=== PATIENT | female | born 1990 | race Caucasian/White ===

== ENCOUNTER 2021-05-04 07:51 | Inpatient (IN) | payer BC ==
[2021-05-04] MEDS ORDERED: hydrALAZINE 20 MG/ML VIAL SLOW IVP PRN ×2 (10:29→14:24)
[2021-05-04] MEDS ORDERED: Ondansetron PF 4 MG/2 ML Vial IVP PRN ×2 (10:29→17:40)
[2021-05-04] MEDS ORDERED: Lactated Ringer's 1,000 ML IV SCH (10:29)
[2021-05-04] MEDS ORDERED: Acetaminophen 500 MG TAB PO PRN (10:29)
[2021-05-04] MEDS ORDERED: Bicitra 30 ML UDCUP PO PRN (10:29)
[2021-05-04] MEDS ORDERED: Famotidine/PF 20 mg/2ml Vial SLOW IVP PRN (10:29)
[2021-05-04] MEDS ORDERED: ceFAZolin 2 GM/Dextrose 50 ML 2 GM in Premix Bag 1 BAG IVPB SCH (10:29)
[2021-05-04] MEDS ORDERED: Promethazine HCl 25 MG/ML VIAL IM PRN ×2 (10:29→17:40)
[2021-05-04 10:37] VITALS: BMI 48.4
[2021-05-04 11:36] LABS: Mean Corpuscular Hemoglobin 25.9 pg (27.0-33.0); Mean Corpuscular Volume 81.1 fl (81.6-98.3); Mean Platelet Volume 12.8 fl (7.4-10.4); Platelet Count 184 10x3/uL (150-450); RBC Distribution Width 14.5 % (11.5-14.5); Red Blood Cell (RBC) Count 4.24 10x6/uL (3.90-5.03); White Blood Cell (WBC) Count 12.5 10x3/uL (3.5-10.5)
[2021-05-04 11:57] LABS: Hep B Surf Ag Non-Reactive S/CO (NonReactive); Syphilis Antibody Nonreactive (Nonreactive); Syphilis Antibody Index 0.04 S/CO (<1.00 Non-Reactive)
[2021-05-04 11:59] LABS: HBSAg Index 0.21 S/CO (0-0.99)
[2021-05-04] MEDS ORDERED: Morphine PF 10 MG/10 ML VIAL ONE (12:02)
[2021-05-04] MEDS ORDERED: Dexamethasone 4 mg/ml Vial ONE (12:05)
[2021-05-04] MEDS ORDERED: Ondansetron PF 4 MG/2 ML Vial ONE (12:05)
[2021-05-04] MEDS ORDERED: Ketorolac Tromethamine 30 MG/ML VIAL ONE (12:05)
[2021-05-04] MEDS ORDERED: Oxytocin 10 UNITS/ML VIAL ONE (12:05)
[2021-05-04] MEDS ORDERED: PHENYLEPHRINE-NS 100 MCG/ML 10 ML SYRINGE ONE (12:26)
[2021-05-04] MEDS ORDERED: HYDROcodone/Acetaminophen 5/325 mg Tablet PO PRN ×2 (14:24)
[2021-05-04] MEDS ORDERED: Bisacodyl 10 MG SUPP PR PRN (14:24)
[2021-05-04] MEDS ORDERED: Misoprostol 200 MCG TAB PR PRN (14:24)
[2021-05-04] MEDS ORDERED: Boostrix 0.5 ML (Tdap) VIAL IM ONE (14:24)
[2021-05-04] MEDS ORDERED: Acetaminophen 325 MG TAB PO PRN (14:24)
[2021-05-04] MEDS ORDERED: Zolpidem Tartrate 5 MG TAB PO PRN (14:24)
[2021-05-04] MEDS ORDERED: diphenhydrAMINE 25 MG CAP PO PRN (14:24)
[2021-05-04] MEDS ORDERED: Lanolin Ointment 7 GM TUBE TOP PRN (14:24)
[2021-05-04] MEDS ORDERED: Hydrocerin (Eucerin) Cream 120 gm Jar TOP PRN (17:40)
[2021-05-04] MEDS ORDERED: Promethazine HCl 25 MG SUPP PR PRN (17:40)
[2021-05-04] MEDS ORDERED: Naloxone HCl 0.4 mg/ml Vial IVP PRN ×2 (17:40)
[2021-05-04] MEDS ORDERED: diphenhydrAMINE 50 MG/ML VIAL IVP PRN (17:40)
[2021-05-04] MEDS ORDERED: Naloxone HCl 0.4 mg/ml Vial IV PRN (17:40)
[2021-05-04] MEDS ORDERED: Communication Order-Pharmacy FS SCH (17:45)
[2021-05-04] MEDS ORDERED: Ibuprofen 800 MG TAB PO SCH (18:00)
[2021-05-04] MEDS ORDERED: Ketorolac Tromethamine 30 MG/ML VIAL IVP PRN (20:00)
[2021-05-04] MEDS: Docusate 100 MG CAP PO SCH (20:18)
[2021-05-05 04:42] LABS: Hemoglobin 9.4 g/dL (12.0-15.5); Mean Corpuscular HGB CONC 31.5 g/dL (32.0-36.0); Mean Corpuscular Hemoglobin 26.3 pg (27.0-33.0); Mean Corpuscular Volume 83.2 fl (81.6-98.3); Mean Platelet Volume 12.5 fl (7.4-10.4); Platelet Count 143 10x3/uL (150-450); RBC Distribution Width 14.5 % (11.5-14.5); Red Blood Cell (RBC) Count 3.58 10x6/uL (3.90-5.03); White Blood Cell (WBC) Count 11.8 10x3/uL (3.5-10.5)
[2021-05-05] MEDS ORDERED: Zolpidem Tartrate 5 MG TAB PO PRN (05:45)
[2021-05-05] MEDS: Docusate 100 MG CAP PO SCH ×2 (09:11→21:07)
[2021-05-05] MEDS: HYDROcodone/Acetaminophen 5/325 mg Tablet PO PRN ×4 (09:11→21:09)
[2021-05-05] MEDS: Prenatal Vitamin 1 TAB PO SCH (09:11)
[2021-05-05] MEDS: Ibuprofen 800 MG TAB PO SCH ×2 (13:07→21:08)
[2021-05-06] MEDS: Ibuprofen 800 MG TAB PO SCH (04:37)
[2021-05-06] MEDS: HYDROcodone/Acetaminophen 5/325 mg Tablet PO PRN ×2 (04:38→09:04)
[2021-05-06] MEDS: Docusate 100 MG CAP PO SCH (08:59)
[2021-05-06] MEDS: Prenatal Vitamin 1 TAB PO SCH (08:59)
[2021-05-06 09:31] VITALS: BP 130/72; TEMP 97.7
== END 2021-05-06 11:00 | disposition home or self-care (01) | DRG 788 ==
LOC: CSHLD 10:13 → CSHPP 16:55
PROVIDERS: ADMIT Obstetrics & Gynecology; ATTEND Obstetrics & Gynecology
PROC: 10D00Z1 Extraction of Products of Conception, Low, Open Approach (ICD-10-PCS; principal; 2021-05-04)
DX: O34.211 Maternal care for low transverse scar from previous cesarean delivery (principal); Z3A.39 39 weeks gestation of pregnancy; Z37.0 Single live birth; O99.214 Obesity complicating childbirth; O99.02 Anemia complicating childbirth; D50.9 Iron deficiency anemia, unspecified
CPT/HCPCS: 36415; 51702; 85027; 86762; 86780; 86850; 86900; 86901; 87340; J0690; J1100; J1885; J2274; J2405; J2590; J7120; S0028

== ENCOUNTER 2021-12-13 13:55 | Outpatient (CLI) | payer BC | END 2021-12-13 13:56 | disposition home or self-care (01) | LOC: CSHULT 13:55 | PROVIDERS: ATTEND Physician Assistant | DX: M79.605 Pain in left leg (principal) ==